=== PATIENT | male | born 1975 ===

== ENCOUNTER 2021-11-04 18:32 | Emergency (ER) | payer OTHER ==
[2021-11-04 18:49] VITALS: BP 136/105
[2021-11-04] MEDS ORDERED: IBUPROFEN 800 MG TAB PO ONE (21:53)
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
== END 2021-11-04 22:57 | disposition home or self-care (01) ==
LOC: ED 18:32
DX: S49.92XA Unspecified injury of left shoulder and upper arm, initial encounter (principal); S89.91XA Unspecified injury of right lower leg, initial encounter; V87.7XXA Person injured in collision between other specified motor vehicles (traffic), initial encounter; Y93.89 Activity, other specified; Y92.488 Other paved roadways as the place of occurrence of the external cause; Y99.8 Other external cause status
CPT/HCPCS: 99283